=== PATIENT | male | born 1980 | race Caucasian/White ===

== ENCOUNTER 2020-04-09 01:57 | Emergency (ER) | payer MEDICAID ==
[~2020-04-09] VITALS: Ht 167.6 cm; Wt 81.6 kg
--- NOTE | 2020-04-09 02:30 | NUR ---
at bedside for assessment
--- NOTE | 2020-04-09 02:48 | NUR ---
Patient discharged to home in stable condition. Able to ambulate with steady gait, no signs of acute distress noted. Written and verbal after care instructions given. Patient verbalizes understanding of instructions. Stressed follow up or return to ER for worsening s/s.
[2020-04-09 02:51] VITALS: BP 132/73
== END 2020-04-09 02:52 | disposition home or self-care (01) ==
LOC: ER 01:58
DX: K64.4 Residual hemorrhoidal skin tags (principal); Z59.0 Homelessness
CPT/HCPCS: A4663